=== PATIENT | male | born 1965 | race Asian ===

== ENCOUNTER 2019-05-22 08:06 | Emergency (ER) | payer OTHER ==
[~2019-05-22] VITALS: Ht 172.7 cm; Wt 88.9 kg
--- NOTE | 2019-05-22 08:15 | NUR ---
ED Nurse Note: Pt walked in from home c/o discomfort d/t urinary retention. Pt has history of BPH and has a nurse at home straight cath him usually. Today he said he could not wait for the nurse and needed the catheterization. Respirations even and unlabored on room air. BP elevated in the 160s systolic. All other vitals stable as documented.
[2019-05-22 08:20] VITALS: BP 168/97
[2019-05-22] MEDS ORDERED: SIMVASTATIN5 MG ORAL (08:21)
[2019-05-22] MEDS ORDERED: LISINOPRIL40 MG ORAL (08:21)
[2019-05-22] MEDS ORDERED: NORVASC5 MG ORAL (08:21)
--- NOTE | 2019-05-22 08:30 | NUR ---
ED Nurse Note: straight catheter inserted and 600 ml yellow urine drained.
--- NOTE | 2019-05-22 08:43 | Emergency Room Report ---
History of Present Illness General Chief Complaint: Male Urogenital Problems Source: Patient Present Illness HPI Disclaimer: Please note that this report is being documented using DRAGON technology. This can lead to erroneous entry secondary to incorrect interpretation by the dictating instrument. HPI: 53-year-old male history of BPH, who self catheterizes daily presents for urinary retention. He states his girlfriend, who is a nurse, usually catheterizes m in the morning and then he has a nurse In the afternoon. However today he drank some juice and feels like he needs to be catheterized early. He denies any fevers nausea vomiting or dysuria. Patient is complaining of suprapubic pain. 8 out of 10 worse with palpation and nonradiating PMH: BPH, high cholesterol PSH: Reviewed Social Hx: Denies smoking, drinking or illicit drug use Allergies: Coded Allergies: No Known Allergies (Unverified , 05/22/19) COVID-19 Screening Contact w/high risk pt: No Recent Travel to affected area: No Experienced COVID-19 symptoms?: No Nursing Documentation-PMH Past Medical History: No History, Except For Hx Hypertension: Yes Hx Dialysis: No - BPH Review of Systems All Other Systems: negative except mentioned in HPI Physical Exam Vital Signs Date Time Temp Pulse Resp B/P (MAP) Pulse Ox O2 Delivery O2 Flow Rate FiO2 05/22/19 08:13 98.1 79 20 168/97 (120) 97 Room Air Sp02 EP Interpretation: reviewed, normal General Appearance: well appearing, no apparent distress Head: normocephalic, atraumatic Eyes: bilateral eye PERRL, bilateral eye EOMI ENT: hearing grossly normal, moist mucus membranes Neck: full range of motion, supple Respiratory: lungs clear, normal breath sounds, no rhonchi, no respiratory distress, no retraction, no wheezing Cardiovascular #1: normal peripheral pulses, regular rate, rhythm, no murmur Gastrointestinal: soft, non-distended, no guarding, other - Suprapubic tenderness noted Neurologic: alert, oriented x3, no focal defects Skin: normal color, warm/dry Medical Decision Making Diagnostic Impression: Primary Impression: Urinary retention due to benign prostatic hyperplasia ER Course MDM: 53-year-old male history of BPH and history of self-catheterization presented for urinary retention. differential diagnosis: Urinary retention, BPH, less likely UTI Clinical course Patient placed on stretcher. In and out catheter was ordered. 600 cc of urine output On reevaluation: Patient improved, pain resolved, abdomen nontender Diagnosis -urinary retention secondary to BPH Stable and discharged to home with instructions to continue his home medications , finasteride and Flomax. Followup with PMD. Return to ED if symptoms recur or worsen Last Vital Signs Date Time Temp Pulse Resp B/P (MAP) Pulse Ox O2 Delivery O2 Flow Rate FiO2 05/22/19 08:20 98.1 79 20 168/97 97 Room Air Status: improved Disposition: HOME, SELF-CARE Condition: Improved Referrals: [facility] Patient Instructions: Acute Urinary Retention, Male, [id number] Additional Instructions: Patient is instructed to follow-up with her primary care doctor, primary care clinic or [facility] in 1 to 2 days. Patient instructed to return for any worsening symptoms or concerns. Please note that the documentation in this note was used with [employer] dictation technology. Pleae be advised that this may lead to erroneous text due to misinterpretation by the dictation software Jono Fuentes M.D. May 22, 2019 08:43
[2019-05-22 08:50] VITALS: BP 159/94
--- NOTE | 2019-05-22 08:50 | NUR ---
ER DISCHARGE NOTE: Patient is cleared to be discharged per ERMD, pt is aox4, on room air, with stable vital signs. pt was given dc instructions and was able to verbalize understanding, pt id band removed. pt is able to ambulate with steady gait. pt took all belongings.
== END 2019-05-22 08:50 | disposition home or self-care (01) ==
LOC: EMR 08:40
DX: R33.9 Retention of urine, unspecified (principal); N40.0 Benign prostatic hyperplasia without lower urinary tract symptoms; E78.00 Pure hypercholesterolemia, unspecified; I10 Essential (primary) hypertension
CPT/HCPCS: 51701; Z7502; 99284

== ENCOUNTER 2019-05-26 14:29 | Emergency (ER) | payer OTHER ==
[~2019-05-26] VITALS: Ht 172.7 cm; Wt 89.8 kg
[~2019-05-26 14:29] MED LIST: LISINOPRIL40 MG ORAL; NORVASC5 MG ORAL; SIMVASTATIN5 MG ORAL
[2019-05-26 14:47] VITALS: BP 172/103
--- NOTE | 2019-05-26 14:51 | NUR ---
ED Nurse Note: pt walked into ED for c/o unable to urinate and needs straight cath. pt reports having BPH.
[2019-05-26 14:52] VITALS: BP_SYST 168
--- NOTE | 2019-05-26 14:59 | NUR ---
ED Nurse Note: pt seen walking out of the ED in steady gait. unable to call pt back.
--- NOTE | 2019-05-26 15:04 | Emergency Room Report ---
History of Present Illness General Chief Complaint: Male Urogenital Problems Source: Patient Present Illness HPI 53-year-old male presents for straight catheterization. He has history of BPH and requires self-catheterization. 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 History of BPH. Pain is dull, 5 out of 10, nonradiating. Denies fevers or chills. Denies flank pain. Denies nausea or vomiting. No other aggravating relieving factors. Denies any other associated symptoms Allergies: Coded Allergies: No Known Allergies (Unverified , 05/22/19) COVID-19 Screening Contact w/high risk pt: No Recent Travel to affected area: No Experienced COVID-19 symptoms?: No Patient History Past Medical History: HTN Past Surgical History: none Pertinent Family History: none Social History: Denies: smoking, alcohol use, drug use Immunizations: UTD Reviewed Nursing Documentation: PMH: Agreed; PSxH: Agreed Nursing Documentation-PMH Past Medical History: No History, Except For Hx Hypertension: Yes Hx Dialysis: No - BPH Review of Systems All Other Systems: negative except mentioned in HPI Physical Exam Vital Signs Date Time Temp Pulse Resp B/P (MAP) Pulse Ox O2 Delivery O2 Flow Rate FiO2 05/26/19 14:47 98.4 89 17 172/103 (126) 98 Room Air Sp02 EP Interpretation: reviewed, normal General Appearance: no apparent distress, alert, GCS 15, non-toxic Head: normocephalic, atraumatic Eyes: bilateral eye normal inspection, bilateral eye PERRL ENT: hearing grossly normal, normal pharynx, no angioedema, normal voice Neck: full range of motion, supple/symm/no masses Respiratory: chest non-tender, lungs clear, normal breath sounds, speaking full sentences Cardiovascular #1: regular rate, rhythm, no edema Cardiovascular #2: 2+ carotid (R), 2+ carotid (L), 2+ radial (R), 2+ radial (L) , 2+ dorsalis pedis (R), 2+ dorsalis pedis (L) Gastrointestinal: normal bowel sounds, non tender, soft, non-distended, no guarding, no rebound Rectal: deferred Genitourinary: normal inspection, no CVA tenderness Musculoskeletal: back normal, normal range of motion, gait/station normal, non- tender Neurologic: alert, motor strength/tone normal, oriented x3, sensory intact, responsive, speech normal Psychiatric: judgement/insight normal, memory normal, mood/affect normal, no suicidal/homicidal ideation Reflexes: 3+ bicep (R), 3+ bicep (L), 3+ tricep (R), 3+ tricep (L), 3+ knee (R) , 3+ knee (L) Lymphatic: no adenopathy Medical Decision Making Diagnostic Impression: Primary Impression: Urinary retention due to benign prostatic hyperplasia ER Course Hospital Course 53-year-old M presents to ED complaining of urinary retention. straight- catherization Differential diagnoses include: obstruction, UTI, BPH Clinical course Patient placed on stretcher. After initial history and physical I reviewed EMR. Patient was here 4 days ago for straight catheterization I explained to the patient that we need to discuss alternative options versus him coming to the ER for straight caths frequently. We discussed the possible option of a Melendez catheter with leg bag. At this point patient became very angry stating "do not tell me what to do with my body". patient yelling and screaming. He then walked out of ED Diagnosis - urinary retention patient eloped from ED Last Vital Signs Date Time Temp Pulse Resp B/P (MAP) Pulse Ox O2 Delivery O2 Flow Rate FiO2 05/26/19 14:52 98.4 89 17 168/ 98 Room Air Status: unchanged Disposition: ELOPED Condition: Stable Referrals: [facility],REFERRING (PCP) Ronak Tejeda MD May 26, 2019 15:04
== END 2019-05-26 15:00 | disposition left against medical advice (07) ==
LOC: EMR 14:57
DX: N40.1 Benign prostatic hyperplasia with lower urinary tract symptoms (principal); R33.8 Other retention of urine; I10 Essential (primary) hypertension
CPT/HCPCS: 99281

== ENCOUNTER 2019-06-22 09:55 | Emergency (ER) | payer OTHER ==
[~2019-06-22] VITALS: Ht 172.7 cm; Wt 86.2 kg
[2019-06-22 10:10] VITALS: BP 182/96
--- NOTE | 2019-06-22 10:10 | NUR ---
ED Nurse Note: Patient walked in to ED c/o urinary retention and FC insertion. Pt has hx of BPH. Per pt, his gf straight cath him usually. BP is 182/96. Not in any distress. ERMD at bedside.
[2019-06-22] MEDS ORDERED: NITROFURANTOIN100 M2 ORAL (10:15)
--- NOTE | 2019-06-22 10:17 | NUR ---
ED Nurse Note: Urine specimen obtained and sent to lab.
--- NOTE | 2019-06-22 10:18 | Emergency Room Report ---
History of Present Illness General Chief Complaint: Male Urogenital Problems Source: Patient Present Illness HPI Patient is a 53-year-old male who presents after increased difficulty with urination. Patient had prior history of benign prostatic hypertrophy and previously been seen by urology. He had been intermittently self cathing due to urinary retention. He had previously been told that he needs a TURP due to BPH. Previous ET imaging. Denies any fever. Had not been vomiting. Reports of increased suprapubic discomfort and urinary difficulty with no urine output. Multiple episodes similarly in the past. Allergies: Coded Allergies: No Known Allergies (Unverified , 05/22/19) COVID-19 Screening Contact w/high risk pt: No Recent Travel to affected area: No Experienced COVID-19 symptoms?: No Patient History Past Medical History: see triage record Reviewed Nursing Documentation: PMH: Agreed; PSxH: Agreed Nursing Documentation-PM Past Medical History: No History, Except For Hx Hypertension: Yes Hx Dialysis: No - BPH Review of Systems All Other Systems: negative except mentioned in HPI Physical Exam Vital Signs Date Time Temp Pulse Resp B/P (MAP) Pulse Ox O2 Delivery O2 Flow Rate FiO2 06/22/19 10:03 98.4 105 18 182/96 (124) 97 Room Air General Appearance: well appearing, no apparent distress, alert, GCS 15, non- toxic Head: normocephalic, atraumatic ENT: hearing grossly normal, normal voice Neck: full range of motion, supple Respiratory: no respiratory distress, speaking full sentences Cardiovascular #1: normal inspection Gastrointestinal: normal inspection Musculoskeletal: normal inspection, no calf tenderness Neurologic: alert, motor strength/tone normal, backhoe operator III-XII nml as tested, oriented x3, normal gait Psychiatric: normal inspection, mood/affect normal Skin: no rash Medical Decision Making Diagnostic Impression: Primary Impression: Urinary retention due to benign prostatic hyperplasia ER Course Presented for urinary retention. Differential diagnosis include was not limited to prosthetic hypertrophy, urinary retention due to medication, among others. Patient has a benign exam and does not appear to require any imaging or laboratory testing at this time. Patient was noted to have a urinary retention and prior history of same. Had previous work-up which showed BPH. Patient will be discharged home with Melendez catheter. He was advised to follow- up with urology for recheck. He was given prescription for Macrobid. He is to return if any worsening condition or other concerns. This medical record is generated with [employer] stations superintendent software. There may be some stations superintendent discrepancies related to use of this software Labs Test 06/22/19 10:27 Urine Color Yellow Urine Appearance Clear Urine pH 5 (4.5-8.0) Urine Specific [place] 1.015 (1.005-1.035) Urine Protein Negative (NEGATIVE) Urine Glucose (UA) Negative (NEGATIVE) Urine Ketones Negative (NEGATIVE) Urine Blood Negative (NEGATIVE) Urine Nitrite Negative (NEGATIVE) Urine Bilirubin Negative (NEGATIVE) Urine Urobilinogen Normal MG/DL (0.0-1.0) Urine Leukocyte Esterase Negative (NEGATIVE) Last Vital Signs Date Time Temp Pulse Resp B/P (MAP) Pulse Ox O2 Delivery O2 Flow Rate FiO2 06/22/19 10:03 98.4 105 18 182/96 (124) 97 Room Air Status: improved Disposition: HOME, SELF-CARE Condition: Stable Scripts Nitrofurantoin Monohyd/M-Cryst* (MACROBID 100 MG*) 100 Mg Capsule 100 MG ORAL EVERY 12 HOURS, #14 CAP Prov: Mynor Kaplan MD 06/22/19 Patient Instructions: Acute Urinary Retention, Male, [id number] Additional Instructions: Follow up with urology for recheck. Return if worse. Mynor Kaplan MD June 22, 2019 10:18
[2019-06-22 10:29] VITALS: BP 161/84
--- NOTE | 2019-06-22 10:29 | NUR ---
ED Nurse Note: Pt cleared by ERMD for discharge. DC instructions was given and explained to pt and verbalized understanding of teachings. prescription was sent electronically to the pharmacy of choice. All medical deviecs such as ID band removed. Pt is AAO x4, ambulatory and left with all personal belongings.
[2019-06-22 10:49] LABS: APPEARANCE,URINE CLEAR; BILIRUBIN, URINE NEGATIVE (NEGATIVE); GLUCOSE, URINE (UA) NEGATIVE (NEGATIVE); KETONES,URINE NEGATIVE (NEGATIVE); LEUKOCYTE ESTERASE ,URINE NEGATIVE (NEGATIVE); NITRITE,URINE NEGATIVE (NEGATIVE); PH,URINE 5 (4.5-8.0); PROTEIN,URINE NEGATIVE (NEGATIVE); UROBILINOGEN,URINE NORMAL MG/DL (0.0-1.0)
[2019-06-22 10:52] LABS: COLOR,URINE YELLOW
== END 2019-06-22 11:00 | disposition home or self-care (01) ==
LOC: EMR 10:47
DX: N40.1 Benign prostatic hyperplasia with lower urinary tract symptoms (principal); R33.8 Other retention of urine; I10 Essential (primary) hypertension
CPT/HCPCS: 81003; Z7502; 99283

== ENCOUNTER 2019-07-29 16:57 | Emergency (ER) | payer OTHER ==
[~2019-07-29] VITALS: Ht 172.7 cm; Wt 86.2 kg
[~2019-07-29 16:57] MED LIST changes: +NITROFURANTOIN100 M2 ORAL
--- NOTE | 2019-07-29 17:15 | NUR ---
ED Nurse Note: Patient walked in to ER, stated that he needs levine catheter to be inserted. Per patient he has BPH, and was not able to pee on his own for 1 year. Per pt, he usually catheter himself. Pt is AOx4, calm and cooperative, VSS, on RA, afebrile on triage. Placed on bed.
--- NOTE | 2019-07-29 17:17 | Emergency Room Report ---
History of Present Illness General Chief Complaint: Male Urogenital Problems Source: Patient Present Illness HPI Patient presents with complaints of urinary retention he reports that he is Also going [place] and felt uncomfortable driving in the situation and he then Also with concern of possibly having retention in the way Denies any chest pain or shortness of breath denies any vomiting patient reports that he has a urologist In the down the area Also discussing TURP procedures with urology and other possibilities however at this time essentially requesting a Melendez catheter Allergies: Coded Allergies: No Known Allergies (Unverified , 05/22/19) COVID-19 Screening Contact w/high risk pt: No Recent Travel to affected area: No Experienced COVID-19 symptoms?: No COVID-19 Testing performed DIRECTOR EQUIPMENT: No Patient History Past Medical History: see triage record Reviewed Nursing Documentation: PMH: Agreed; PSxH: Agreed Nursing Documentation-PMH Hx Hypertension: Yes Hx Dialysis: No - BPH Review of Systems All Other Systems: negative except mentioned in HPI Physical Exam Vital Signs Date Time Temp Pulse Resp B/P (MAP) Pulse Ox O2 Delivery O2 Flow Rate FiO2 07/29/19 17:04 98.2 98 18 150/98 (115) 98 Room Air Sp02 EP Interpretation: reviewed, normal General Appearance: well appearing, no apparent distress Head: normocephalic, atraumatic Eyes: bilateral eye PERRL, bilateral eye EOMI ENT: hearing grossly normal, normal pharynx, TMs + canals normal, uvula midline Neck: full range of motion, supple, no meningismus, no bony tend Respiratory: lungs clear, normal breath sounds, no rhonchi, no respiratory distress, no retraction, no accessory muscle use Cardiovascular #1: normal peripheral pulses, regular rate, rhythm, no edema, no gallop, no JVD, no murmur Gastrointestinal: normal bowel sounds, non tender, soft, no mass, no organomegaly, non-distended, no guarding, no hernia, no pulsatile mass, no rebound Genitourinary: no CVA tenderness - However some fullness and discomfort is palpated to the suprapubic region Musculoskeletal: normal inspection Neurologic: motor strength/tone normal, hospital education coordinator III-XII nml as tested, oriented x3 , sensory intact, responsive Psychiatric: mood/affect normal Skin: no rash Lymphatic: normal inspection, no adenopathy Medical Decision Making Diagnostic Impression: Primary Impression: Urinary retention Additional Impression: Melendez catheter in place ER Course Given the history and examination patient has Melendez catheter placed given his discomfort and Retention acutely Patient is aware of his medical condition He has had several visits to our emergency room with discussions with different emergency room physicians I did also discussed the importance of close follow-up And the concern and possible negative impact from multiple Melendez catheter placements in the emergency room Including but not limited to scarring, chronic infections, fistula formations Labs Test 07/29/19 17:34 Urine Color Yellow Urine Appearance Clear Urine pH 5 (4.5-8.0) Urine Specific [place] 1.020 (1.005-1.035) Urine Protein Negative (NEGATIVE) Urine Glucose (UA) Negative (NEGATIVE) Urine Ketones Negative (NEGATIVE) Urine Blood Negative (NEGATIVE) Urine Nitrite Negative (NEGATIVE) Urine Bilirubin Negative (NEGATIVE) Urine Urobilinogen Normal MG/DL (0.0-1.0) Urine Leukocyte Esterase Negative (NEGATIVE) Last Vital Signs Date Time Temp Pulse Resp B/P (MAP) Pulse Ox O2 Delivery O2 Flow Rate FiO2 07/29/19 17:04 98.2 98 18 150/98 (115) 98 Room Air Status: improved Disposition: HOME, SELF-CARE Condition: Improved Scripts Tamsulosin HCl (Flomax) 0.4 Mg Cap.er.24h 0.4 MG ORAL DAILY for 7 Days, CAP Prov: Francois Ayon DO 07/29/19 Additional Instructions: Patient is provided with the discharge instructions notified to follow up with primary doctor in the next 2-3 days otherwise return to the er with any worsening symptoms. Please note that this report is being documented using [employer] technology. This can lead to erroneous entry secondary to incorrect interpretation by the dictating instrument. Francois Ayon DO Jul 29, 2019 17:17
[2019-07-29] MEDS ORDERED: FLOMAX0.4 MG ORAL (17:18)
[2019-07-29 17:30] VITALS: BP 150/98
[2019-07-29 17:50] LABS: APPEARANCE,URINE CLEAR; BILIRUBIN, URINE NEGATIVE (NEGATIVE); GLUCOSE, URINE (UA) NEGATIVE (NEGATIVE); KETONES,URINE NEGATIVE (NEGATIVE); LEUKOCYTE ESTERASE ,URINE NEGATIVE (NEGATIVE); NITRITE,URINE NEGATIVE (NEGATIVE); PH,URINE 5 (4.5-8.0); PROTEIN,URINE NEGATIVE (NEGATIVE); UROBILINOGEN,URINE NORMAL MG/DL (0.0-1.0)
[2019-07-29 17:52] LABS: COLOR,URINE YELLOW
[2019-07-29 18:00] VITALS: BP 122/82
--- NOTE | 2019-07-29 18:00 | NUR ---
ER DISCHARGE NOTE: Pt is cleared to be discharged per ERMD, pt is aox4, on room air, with stable vital signs. pt was given dc and prescription instructions, pt was able to verbalize understanding, pt id band removed. pt is able to ambulate with steady gait. pt took all belongings.
== END 2019-07-29 18:00 | disposition home or self-care (01) ==
LOC: EMR 17:15
DX: T83.098A Other mechanical complication of other urinary catheter, initial encounter (principal); R33.9 Retention of urine, unspecified; X58.XXXA Exposure to other specified factors, initial encounter; Y92.9 Unspecified place or not applicable; I10 Essential (primary) hypertension
CPT/HCPCS: 81003; 99282

== ENCOUNTER 2019-11-08 09:33 | Emergency (ER) | payer OTHER ==
[~2019-11-08] VITALS: Ht 172.7 cm; Wt 86.2 kg
[~2019-11-08 09:33] MED LIST changes: +FLOMAX0.4 MG ORAL
[2019-11-08 09:47] VITALS: BP 126/100
[2019-11-08] MEDS ORDERED: PROSCAR5 MG ORAL ×2 (09:51→09:53)
--- NOTE | 2019-11-08 09:52 | Emergency Room Report ---
History of Present Illness General Chief Complaint: Male Urogenital Problems Source: Patient Present Illness HPI 54-year-old male history of BPH, self caths presents with dysuria x1 day no aggravating relieving factors severity is mild, intermittent, no flank pain, no fevers no chills, he does endorse suprapubic pain Allergies: Coded Allergies: No Known Allergies (Unverified , 05/22/19) COVID-19 Screening Contact w/high risk pt: No Recent Travel to affected area: No Experienced COVID-19 symptoms?: No COVID-19 Testing performed LITERACY COACH: No Patient History Past Medical History: see triage record Reviewed Nursing Documentation: PMH: Agreed; PSxH: Agreed Nursing Documentation-PMH Past Medical History: No History, Except For Hx Hypertension: Yes Hx Dialysis: No - BPH Review of Systems All Other Systems: negative except mentioned in HPI Physical Exam Vital Signs Date Time Temp Pulse Resp B/P (MAP) Pulse Ox O2 Delivery O2 Flow Rate FiO2 11/08/19 09:36 97.5 89 22 126/100 (109) 98 Room Air General Appearance: well appearing, no apparent distress Head: normocephalic, atraumatic ENT: hearing grossly normal, normal voice Neck: full range of motion, supple Respiratory: no respiratory distress, speaking full sentences Gastrointestinal: soft, tenderness - Suprapubically Genitourinary: no CVA tenderness Neurologic: alert, normal gait Psychiatric: mood/affect normal Skin: no rash Medical Decision Making Diagnostic Impression: Primary Impression: UTI (urinary tract infection) Qualified Codes: N30.00 - Acute cystitis without hematuria ER Course 54-year-old male presents with dysuria differential diagnosis includes UTI, pyelonephritis, We will provide patient with Keflex indwelling Melendez inserted due to difficulty urinating disposition home with return precautions follow-up with urology Last Vital Signs Date Time Temp Pulse Resp B/P (MAP) Pulse Ox O2 Delivery O2 Flow Rate FiO2 11/08/19 09:47 97.5 88 22 126/100 100 Room Air Disposition: HOME, SELF-CARE Condition: Stable Scripts Cephalexin* (KEFLEX*) 500 Mg Tablet 500 MG ORAL EVERY 6 HOURS, #20 CAP Prov: Wiliam Moctezuma MD 11/08/19 Referrals: NON PHYSICIAN (PCP) [facility] Remigio Monterroso [facility] Patient Instructions: Urinary Tract Infection Additional Instructions: The patient was provided with discharge instructions, notified to follow-up with a primary care doctor and or specialist in the next 24-48 hours, and to return to the ED if they have worsening of their symptoms. Please note that this report is being documented using [employer] technology. This can lead to erroneous entry secondary to incorrect interpretation by the dictating instrument. Wiliam Moctezuma MD Nov 08, 2019 09:52
[2019-11-08] MEDS ORDERED: CEPHALEXIN500 M1 ORAL (09:59)
[2019-11-08 10:09] VITALS: BP 119/89
[2019-11-08 10:14] LABS: APPEARANCE,URINE CLEAR; BILIRUBIN, URINE NEGATIVE (NEGATIVE); GLUCOSE, URINE (UA) NEGATIVE (NEGATIVE); KETONES,URINE NEGATIVE (NEGATIVE); LEUKOCYTE ESTERASE ,URINE 1+ (NEGATIVE); NITRITE,URINE NEGATIVE (NEGATIVE); PH,URINE 6.5 (4.5-8.0); PROTEIN,URINE NEGATIVE (NEGATIVE); UROBILINOGEN,URINE NORMAL MG/DL (0.0-1.0)
[2019-11-08 10:15] LABS: COLOR,URINE PALE YELLOW
== END 2019-11-08 10:08 | disposition home or self-care (01) ==
LOC: EMR 09:48
DX: N30.00 Acute cystitis without hematuria (principal); I10 Essential (primary) hypertension; N40.0 Benign prostatic hyperplasia without lower urinary tract symptoms
CPT/HCPCS: 81003; 99283